=== PATIENT | male | born 1950 | race Caucasian/White ===

== ENCOUNTER → 2016-03-01 | Outpatient (CLI) | payer OTHER | LOC: PCVCIMAG 12:12 | PROVIDERS: ATTEND Internal Medicine | DX: I25.10 Atherosclerotic heart disease of native coronary artery without angina pectoris (principal); I10 Essential (primary) hypertension; E78.5 Hyperlipidemia, unspecified; Z95.1 Presence of aortocoronary bypass graft; Z98.890 Other specified postprocedural states | CPT/HCPCS: 93306 ==

== ENCOUNTER → 2017-01-15 | Outpatient (CLI) | payer OTHER | END | disposition home or self-care (01) | LOC: PCVCCLINIC 11:24 | PROVIDERS: ATTEND Internal Medicine | DX: I25.119 Atherosclerotic heart disease of native coronary artery with unspecified angina pectoris (principal); I10 Essential (primary) hypertension; E78.2 Mixed hyperlipidemia; R00.1 Bradycardia, unspecified; R94.31 Abnormal electrocardiogram [ECG] [EKG]; Z95.1 Presence of aortocoronary bypass graft; Z98.890 Other specified postprocedural states; Z79.82 Long term (current) use of aspirin; Z79.899 Other long term (current) drug therapy | CPT/HCPCS: 93005; G0463 ==

== ENCOUNTER → 2017-01-30 | Outpatient (CLI) | payer MEDICARE ==
[~2017-01-30] MED LIST: REGADENOSON 0.4 MG/5 ML DISP.SYRIN. IV ONE
--- NOTE | 2017-01-30 16:19 | PCVCIMAG ---
APPROVED REPORT Exam: Nuclear Stress Test Indication: Chest pain, CAD, S/P MVR & CABG Patient Location: Out-Patient Stress Nurse: Sivan Castelan RN [place] Tech:BRAULIO Fuentes Ht: 5 ft 10 in Wt: 225 lbs BSA: 2.19 m2 HR: 63 bpm BP: 148/96 mmHg BMI: 32.2 Rhythm: NSR Medical History Medical History: AGE, HYPERLIPIDEMIA, HTN Medications: ASA, Atenolol, Atorvastatin, Lisinopril, Dyazide Allergies: No known drug allergies Previous Cardiac Procedures: CABG(2013) Pretest Chest Pain Characteristics: No chest pain Exercise History: Physically active Meds Held (24 hrs): atenolol NM EXAM: Myocardial Perfusion REST/STRESS Imaging Protocol: Rest Tc-99m/Stress Tc-99m 1 day Resting Data Rest SPECT myocardial perfusion imaging was performed in supine position 45 minutes following the intravenous injection of 11.0 mCi of Tc-99m Sestamibi. Time of rest injection: 0910 Date: 01/30/2017 Administration Route: IV Administration Site: Right AC Pharmacologic Stress Pharmacologic stress test was performed by injecting Regadenoson 0.4 mg IV push followed by the intravenous injection of 34.5 mCi of Tc-99m Sestamibi. Time of stress injection: 1030 Date: 01/30/2017 Administration Route: IV Administration Site: Right AC Gated Stress SPECT was performed 45 minutes after stress injection. The images were gated to evaluate regional wall motion and calculate left ventricular ejection fraction. Study Quality Study: Good Study Data Post stress, the left ventricular ejection was 74%.. SSS: 5 SRS: 3 SDS: 2 TID = 0.84. 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 Wall Motion Normal left ventricular size and function with no regional wall motion abnormalities. 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 Normal left ventricular size and function with no regional wall motion abnormalities. Post stress, the left ventricular ejection was 74%.. No prior study available for comparison. Interpreted by: Zackary Rose MD Electronically Approved: 01/30/2017 15:07:06 Stress Test Details Stress Test: Pharmacologic stress was paired with low level exercise. Reason for pharmacologic stress test: KNEES. HR Resting HR: 63 bpmMax Heart Rate (APMHR): 155 bpm Max HR Achieved: 92 bpmTarget HR (85% APMHR): 131 bpm % of APMHR: 59 Recovery HR: 72 bpm BP Resting BP: 148/96 mmHg Max BP: 120/96 mmHg ECG Resting ECG: Sinus Rhythm Stress ECG: Sinus Rhythm ST Change: None Maximum ST Deviation: 0 mm Arrhythmia: None Recovery ECG: Sinus Rhythm Recovery ST Change: None Recovery ST Deviation: 0 mm Recovery Arrhythmia: None Clinical Reason for Termination: Completed protocol Stress Symptoms: Abdominal discomfort, Dyspnea Exercise duration: 4 min 00 sec Exercise capacity: 1.6 METs Symptoms resolved during recovery. Stress ECG Conclusion ECG: Non-ischemic Clinical: Non-ischemic <Conclusion> ECG: Non-ischemic Clinical: Non-ischemic
== END | disposition home or self-care (01) ==
LOC: PCVCIMAG 08:57
PROVIDERS: ATTEND Internal Medicine
DX: I25.10 Atherosclerotic heart disease of native coronary artery without angina pectoris (principal); I10 Essential (primary) hypertension; R07.9 Chest pain, unspecified; Z95.2 Presence of prosthetic heart valve; Z95.1 Presence of aortocoronary bypass graft
CPT/HCPCS: 78452; 93017; A9500; J2785

== ENCOUNTER → 2017-03-05 | Outpatient (CLI) | payer MEDICARE | END | disposition home or self-care (01) | LOC: PCVCCLINIC 10:40 | DX: I25.10 Atherosclerotic heart disease of native coronary artery without angina pectoris (principal); I10 Essential (primary) hypertension; E78.2 Mixed hyperlipidemia; R94.31 Abnormal electrocardiogram [ECG] [EKG]; R00.1 Bradycardia, unspecified; Z98.890 Other specified postprocedural states; Z95.1 Presence of aortocoronary bypass graft; Z79.82 Long term (current) use of aspirin; Z79.899 Other long term (current) drug therapy | CPT/HCPCS: 93005; G0463 ==

== ENCOUNTER → 2018-02-25 | Outpatient (CLI) | payer OTHER, MEDICARE | END | disposition home or self-care (01) | LOC: PCVCCLINIC 11:19 | PROVIDERS: ATTEND Internal Medicine | DX: I25.10 Atherosclerotic heart disease of native coronary artery without angina pectoris (principal); I10 Essential (primary) hypertension; E78.5 Hyperlipidemia, unspecified; Z95.1 Presence of aortocoronary bypass graft; Z98.890 Other specified postprocedural states; Z79.899 Other long term (current) drug therapy; Z79.82 Long term (current) use of aspirin | CPT/HCPCS: 36415; 80061; 93005; G0463 ==

== ENCOUNTER → 2018-09-16 | Outpatient (CLI) | payer OTHER, MEDICARE ==
--- NOTE | 2018-09-16 16:41 | PCVCIMAG ---
APPROVED REPORT Study performed: 09/16/2018 13:50:35 EXAM: Comprehensive 2D, Doppler, and color-flow Echocardiogram Patient Location: Echo lab Status: routine BSA: 2.13 HR: 75 bpmBP: 132/72 mmHg Rhythm: NSR Other Information Study Quality: Adequate Risk Factors: Cardiac Risk Factors: HTN Indications CAD CABG, mitral valve ring repair 2D Dimensions IVSd: 13.32 (7-11mm) LVDd: 39.58 mm PWd: 11.70 (7-11mm)Ascending Ao: 35.30 (22-36mm) LVDs: 24.15 (25-40mm) Left Atrium: 39.25 (27-40mm) Aortic Root: 34.12 mm LV Single Plane 4CH: 51.51 % LV Single Plane 2CH: 65.62 % Biplane EF: 59.7 % Volumes Left Atrial Volume (Systole) Single Plane 4CH: 64.85 mLSingle Plane 2CH: 57.50 mL LA ESV Index: 29.00 mL/m2 Aortic Valve AoV Peak Hernandez.: 2.00 m/s AO Peak Gr.: 16.06 mmHgLVOT Max P.05 mmHg LVOT Max V: 1.59 m/s AI Vmax: 4.10 m/s AI [place]: 2.08 m/s2 AI PHT: 572.54 ms Mitral Valve MV Peak Gr.: 7.60 mmHg MV Mean Gr.: 2.83 mmHgE/A Ratio: 0.8 MV Decel. Time: 364.95 ms MV E Max Hernandez.: 0.99 m/s MV A Hernandez.: 1.32 m/s MV Max Hernandez.: 1.38 m/s MV Mean Hernandez.: 0.78 m/s MV VTI: 397.96 mm MV PHT: 105.12 ms MVA (PHT): 2.09 cm2 IVRT: 103.81 ms Pulmonary Valve PV Peak Hernandez.: 1.18 m/sPV Peak Gr.: 5.52 mmHg Pulmonary Vein P Vein S: 0.33 m/sP Vein A: 0.61 m/s P Vein D: 0.51 m/sP Vein A Dur.: 134.9 msec P Vein S/D Ratio: 0.65 Tricuspid Valve TR Peak Hernandez.: 2.66 m/s TR Peak Gr.: 28.26 mmHg Left Ventricle The left ventricle is normal size. There is normal LV segmental wall motion. Mild concentric left ventricular hypertrophy. Left ventricular systolic function is normal. The left ventricular ejection fraction is within the normal range. LVEF is 55-60%. This study is not technically sufficient to allow evaluation of the LV diastolic function. Right Ventricle The right ventricle is normal size. The right ventricular systolic function is normal. Atria The left atrium size is normal. The right atrium size is normal. Aortic Valve The aortic valve is midly calcified. Mild aortic regurgitation. There is no aortic valvular stenosis. Mitral Valve Changes consistent with posterior mitral leaflet repair. #28 Sequin semirigid mitral annuloplasty ring. Trace mitral regurgitation. No evidence of mitral valve stenosis. MVA is 2.1 cm2 by PHT with a mean gradient of 2.8 mmHg and a peak gradient of 7.6 mmHg. Tricuspid Valve The tricuspid valve is normal in structure. Mild tricuspid regurgitation with PAP of 35 mmHg. Pulmonic Valve The pulmonary valve is normal in structure. There is no pulmonic valvular regurgitation. Great Vessels The aortic root is normal in size. IVC is normal in size and collapses >50% with inspiration. Pericardium There is no pericardial effusion. There is no pleural effusion. <Conclusion> Left ventricular systolic function is normal. There is normal LV segmental wall motion. LVEF is 55-60%. The aortic valve is midly calcified. Mild aortic regurgitation, no stenosis. Changes consistent with posterior mitral leaflet repair. #28 Sequin semirigid mitral annuloplasty ring. Trace mitral regurgitation, no mitral stenosis. Mild tricuspid regurgitation with pulmonary artery pressure of 35 mmHg. There is no pericardial effusion.
== END | disposition home or self-care (01) ==
LOC: PCVCIMAG 13:41
PROVIDERS: ATTEND Internal Medicine
DX: I08.2 Rheumatic disorders of both aortic and tricuspid valves (principal); I25.10 Atherosclerotic heart disease of native coronary artery without angina pectoris; E78.5 Hyperlipidemia, unspecified; I11.9 Hypertensive heart disease without heart failure; Z98.890 Other specified postprocedural states; Z95.1 Presence of aortocoronary bypass graft; Z79.899 Other long term (current) drug therapy; Z79.82 Long term (current) use of aspirin
CPT/HCPCS: 36415; 80061; 93005; 93306; G0463